=== PATIENT | male | born 1990 | race Caucasian/White ===

== ENCOUNTER 2017-01-03 03:37 | Emergency (ER) | payer OTHER ==
[~2017-01-03] VITALS: Ht 167.6 cm; Wt 93.0 kg
[2017-01-03 03:56] VITALS: BP 156/87
[2017-01-03] MEDS ORDERED: DICLOFENAC SODI75 M2 PO (04:22)
[2017-01-03] MEDS ORDERED: CYCLOBENZAPRINE10 M1 PO (04:22)
--- NOTE | 2017-01-03 04:23 | ED UPPER/LOWER EXTREMITY COMPL ---
History of Present Illness General Chief Complaint: Shoulder Injury Stated Complaint: LT ARM PAIN X'S FEW WKS Source: patient Exam Limitations: no limitations Vital Signs & Intake/Output Vital Signs & Intake/Output Vital Signs Date Time Temp Pulse Resp B/P Pulse O2 O2 Flow FiO2 Ox Delivery Rate 01/038 100 Room Air 01/03 356 156/87 01/03 353 98.0 88 18 162/104 97 Allergies Uncoded Allergies: Med Allergies DENIES Triage Note: PT FROM HOME C/O LEFT SHOULDER PAIN. PT STATES "ON 12/17/16 I WOKE UP WITH A KINK IN MY NECK ON MY LEFT SIDE AND MY ARM AND JAW BECAME NUMB, I WAS SEEN IN A WALK-IN CLINIC AND THEY TOLD ME I WAS FINE. TONIGHT I WOKE UP IN THE WORST PAIN ABDOUL EVER FELT. IN TRIAGE PT HAS LEFT ARM HUGGED TIGHT TO HIS BODY WITH NO USE. PT TO RM 3 AWAITING PROVDIER EVAL. Triage Nurses Notes Reviewed? yes HPI: Patient presents for evaluation of a severe sharp left arm and shoulder pain that began a few weeks ago. Patient states it is been relatively minor and he was seen in the walk-in center. However after beginning the weight training program yesterday his pain seems to have become more or less unbearable starting about 2 hours ago. He states he's had some occasional swelling of the left trapezius but this seems to come and go. The pain gets much worse with movement and palpation. He tried a dose of ibuprofen without much improvement. Past History Travel History Traveled to [place] past 21 day No Medical History Any Pertinent Medical History? see below for history Surgical History Surgical History: non-contributory Psychosocial History What is your primary language Bengali Tobacco Use: Never used ETOH Use: occasional use Illicit Drug Use: denies illicit drug use Family History Hx Contributory? No Review of Systems Review of Systems Constitutional: Reports: no symptoms. EENTM: Reports: no symptoms. Respiratory: Reports: no symptoms. Cardiovascular: Reports: no symptoms. Gastrointestinal/Abdominal: Reports: no symptoms. Genitourinary: Reports: no symptoms. Musculoskeletal: Reports: see HPI. Skin: Reports: no symptoms. Neurological/Psychological: Reports: no symptoms. Hematologic/Endocrine: Reports: no symptoms. Immunological: Reports: no symptoms. All Other Systems: Reviewed and Negative Physical Exam Physical Exam General Appearance: SEE BELOW Comments: Gen.: Well-nourished, well-developed, no acute respiratory distress. Head: Normocephalic, atraumatic. Eyes: Normal inspection bilaterally Ears: Normal inspection bilaterally Nose: Normal inspection, nasal cannula in place Throat/mouth : Moist mucosa Neck: Supple, full range of motion, no goiter Heart: Regular rate and rhythm Lungs: Quiet respirations Back: Normal range of motion Extremities: Left upper extremity: Tenderness over the left trapezius and left deltoid and bicep, severely decreased range of motion due to pain, no ecchymoses or soft tissue swelling, the distal extremity is neurovascularly intact. Neurologic: Cranial nerves grossly intact, speech is clear Skin: warm and dry Psychiatric: Calm, cooperative, no apparent delusions or hallucinations Progress Differential Diagnosis: contusion, sprain, tendon injury Plan of Care: Anti-inflammatory, muscle relaxer, shoulder immobilizer Departure Departure Disposition: HOME OR SELF CARE Condition: Stable Clinical Impression Primary Impression: Sprain of left shoulder Qualifiers: Encounter type: initial encounter Shoulder sprain type: unspecified sprain Qualified Code: S43.402A - Unspecified sprain of left shoulder joint, initial encounter Referrals: PATIENT HAS NO PRIMARY CARE DR (PCP/Family) Departure Forms: Customer Survey General Discharge Information Prescriptions: Current Visit Scripts Diclofenac Sodium 1 TAB PO BID PRN PAIN #14 TAB Cyclobenzaprine HCl 1 TAB PO TID PRN MUSCLE SPASMS #21 TAB
== END 2017-01-03 04:26 ==
LOC: ERH 03:37
DX: S43.402A Unspecified sprain of left shoulder joint, initial encounter (principal); X50.0XXA Overexertion from strenuous movement or load, initial encounter; Y93.B3 Activity, free weights